=== PATIENT | female | born 1990 | race Caucasian/White ===

== ENCOUNTER 2022-07-24 18:46 | Emergency (ER) | payer OTHER ==
[~2022-07-24] VITALS: Ht 170.2 cm; Wt 61.7 kg
--- NOTE | 2022-07-24 19:09 | NUR ---
Dr. Knight in to see pt. pt c/o lower extrem pain.
[2022-07-24 19:51] LABS: *BILIRUBIN,URIN NEGATIVE (NEGATIVE); *BLOOD, URINE NEGATIVE (NEGATIVE); *CLARITY,URINE CLEAR (CLEAR); *COLOR,URINE YELLOW (YELLOW); *KETONES,URINE NEGATIVE (NEGATIVE); *UROBILINOGEN,URINE 0.2 E.U./dl (NORMAL); LEUKOCYTE ESTERASE ,URINE TRACE (NEGATIVE); NITRITE, URINE NEGATIVE (NEGATIVE); PH,URINE 5.5 (5.0-8.0); UGLUCOSE NEGATIVE (NEGATIVE)
[2022-07-24 19:53] LABS: CARBON DIOXIDE 26 mmol/L (21-32); CHLORIDE 103 mmol/L (98-107); GLUCOSE 88 mg/dL (74-106); HEMATOCRIT 34.8 % (31.2-41.9); MEAN CORPUSCULAR HEMOGLOBIN 31.1 uug (24.7-32.8); MEAN CORPUSCULAR VOLUME 93.3 fL (75.5-95.3); PLATELET COUNT (AUTO) 189 K/uL (179-408); POTASSIUM 3.4 mmol/L (3.5-5.1); UREA NITROGEN, BLOOD 11 mg/dL (7-18)
[2022-07-24 20:01] LABS: BACTERIA,URINE FEW /HPF (NONE SEEN); RBC,URINE 0-3 /HPF (0-3); SQUAMOUS EPITHELIAL CELL,UR FEW /HPF (NONE SEEN)
[2022-07-24 20:04] LABS: ALANINE AMINOTRANSFERASE 20 U/L (14-59); ALKALINE PHOSPHATASE 43 U/L (50-136); ASPARTATE AMINOTRANSFERASE 9 U/L (15-37); BILIRUBIN,DIRECT < 0.1 mg/dL (0.0-0.2); BILIRUBIN,TOTAL 0.3 mg/dL (0.2-1.0)
[2022-07-24] MEDS ORDERED: CYANOCOBALAMIN 1000 MCG/ML VIAL ONE (20:55)
[2022-07-24] MEDS ORDERED: CYAN-10 IJ (20:59)
[2022-07-24] MEDS ORDERED: SYRI-29 MC (20:59)
[2022-07-24] MEDS ORDERED: CYANOCOBALAMIN 1000 MCG/ML VIAL IM ONE (21:00)
[2022-07-24] MEDS ORDERED: OXYC-128 PO (21:05)
--- NOTE | 2022-07-24 21:18 | NUR ---
Patient discharged to home in stable condition. Written and verbal after care instructions given. Patient verbalizes understanding of instructions. Stressed follow up or return to ER for worsening s/s.
[2022-07-24 21:19] VITALS: BP 120/70
== END 2022-07-24 21:19 | disposition home or self-care (01) ==
LOC: ER 18:46
DX: E53.8 Deficiency of other specified B group vitamins (principal); G89.29 Other chronic pain; M79.602 Pain in left arm; M79.601 Pain in right arm; M79.605 Pain in left leg; M79.604 Pain in right leg; Z86.16 Personal history of COVID-19
CPT/HCPCS: 99283; 80076; 80048; 81001; 82607; 83735; 85025; 85379; 86140; 87086; 36415; 96372; 83921; J3420; A4663